=== PATIENT | female | born 1995 | race Caucasian/White ===

== ENCOUNTER 2021-10-25 10:08 | Emergency (ER) | payer OTHER, SELFPAY ==
[2021-10-25 10:09] VITALS: BP 135/81; PULSE 71; RESP 16; TEMP 36.9; O2SAT 98; BMI 23.5
--- NOTE | 2021-10-25 10:13 | HMH.EDGENADL ---
ED Disposition Clinical Impression: Normal exam Disposition: Home, Self-Care Condition on Discharge: Good Additional Instructions: Return to the emergency department if you feel worse in any way. Follow-up with your doctor as needed and regarding the blood tests drawn today. Referrals: Provider,Referral, [Primary Care Provider] - - Critical Care Critical Care Time: No Attestation: On , the high probability of a clinically significant, sudden or life threatening deterioration of the following system(s) required my full and direct attention, intervention and personal management. The time I documented below is in addition to time spent performing reported procedures but includes the following listed in this critical care notation. Medical Decision Making - Jose Inquiry Pt receiving controlled substance: No Vital Signs: 10/25/21 10:09 Temperature 98.5 F Temperature Source Oral Pulse Rate [Right] 71 Respiratory Rate 16 Blood Pressure [Right Arm] 135/81 Blood Pressure Mean [Right Arm] 99 Blood Pressure Source [Right Arm] Automatic Cuff Blood Pressure Position [Right Arm] Sitting 02 Sat by Pulse Oximetry 98 Oxygen Delivery Method Room Air Orders (Tests/Meds): ORDERS Category Date Time Status Complete Blood Count Auto Diff Stat Lab 10/25/21 10:25 Ordered HBsAg Screen Stat Lab 10/25/21 10:25 Ordered HIV Panel [id number] Stat Lab 10/25/21 10:25 Ordered Hepatitis B Surf Ab Quant Stat Lab 10/25/21 10:25 Ordered Hepatitis C Antibody Stat Lab 10/25/21 10:25 Ordered Liver Panel Stat Lab 10/25/21 10:25 Ordered PT/PTT Stat Lab 10/25/21 10:25 Ordered General Adult HPI - General Stated complaint: possible blood exposure Time Seen by Provider: 10/25/21 10:14 - History of Present Illness HPI narrative: The patient presents to the emergency department complaining of a possible exposure to blood products at work. She denies an actual needlestick but felt a needle grazed against her left thumb. She denies any bleeding or visible scraping. Onset (ago): minute(s) (30) - Related Data Allergies Allergy/AdvReac Type Severity Reaction Status Date / Time No Known Allergies Allergy Verified 10/25/21 10:21 [facility] History - Hepatitis A Screen Drug use history?: No Attestation statement:: This patient has been screened for Hepatitis A risk factors. ROS Obtained: Yes All systems reviewed & no additional complaints Physical Exam - General General appearance: alert, in no apparent distress - Head Head exam: atraumatic, normocephalic, normal inspection - Eye Eye exam: Present: normal appearance, PERRL, EOMI - ENT ENT exam: Present: normal exam, normal oropharynx, mucous membranes moist, normal external ear exam - Neck Neck exam: Present: normal inspection, full ROM, trachea midline. Absent: meningismus, lymphadenopathy - Chest Chest inspection: Present: normal inspection, symmetric chest wall rise. Absent: tenderness - Respiratory Respiratory exam: Present: normal lung sounds bilaterally. Absent: respiratory distress - Cardiovascular Cardiovascular exam: Present: regular rate, normal rhythm. Absent: JVD - Abdominal Exam Abdominal exam: Present: soft, normal bowel sounds. Absent: distention, tenderness, guarding - Extremities Exam Extremities exam: Present: normal inspection, full ROM, normal capillary refill, other (The skin is intact at the sites of the possible injury. Which is her left thumb. There is no bleeding, there is no abrasion, there is no ecchymosis.). Absent: calf tenderness - Back Exam Back exam: Present: normal inspection. Absent: tenderness - Neurological Exam Neurological exam: Present: alert, oriented X3 - Psychiatric Psychiatric exam: Present: normal affect, normal mood - Skin Skin exam: Present: warm, dry, intact, normal color - Lymphatic Lymphatic Findings: no adenopathy
--- NOTE | 2021-10-25 10:26 | PC.NURSE ---
[employer] shaving and splitting notified ETHAN Barrientos of exposure
--- NOTE | 2021-10-25 10:28 | PC.NURSE ---
Notified lab of blood draw
[2021-10-25 11:02] LABS: Basophils # 0.1 K/mm3 (0-0.2); Basophils % 1.8 % (0.1-2.0); Eosinophils # 0.1 K/mm3 (0.0-0.4); Eosinophils % 2.5 % (0.1-12.0); Hemoglobin 14.6 g/dL (12.2-16.2); Lymphocytes # 1.2 K/mm3 (0.7-4.5); Lymphocytes % 23.1 % (10-50); Mean Corpuscular HGB Conc 33.9 g/dL (31.8-35.4); Mean Corpuscular Hemoglobin 30.7 pg (27.0-31.2); Mean Corpuscular Volume 90.7 fl (81-99); Mean Platelet Volume 8.4 fl (7.4-10.4); Monocytes # 0.3 K/mm3 (0.1-1.0); Monocytes % 5.7 % (1.7-9.3); Neutrophils # 3.5 K/mm3 (1.8-7.8); Platelet Count 288 K/mm3 (142-424); Red Blood Count 4.74 M/mm3 (4.20-5.40); White Blood Count 5.3 K/mm3 (4.8-10.8)
[2021-10-25 11:07] LABS: Alanine Aminotransferase 30 U/L (12-78); Albumin Level 4.6 g/dl (3.5-5.0); Alkaline Phosphatase 60 U/L (38-126); Aspartate Amino Transferase 36 U/L (14-36); Bilirubin,Indirect 0.6 mg/dL (0.0-0.9); Bilirubin,Total 0.6 mg/dl (0.2-1.3); Bilirubin,Unconjugated 0.6 mg/dL (0.0-1.1); Total Protein,Serum 7.7 g/dl (6.3-8.2)
[2021-10-25 11:13] LABS: Activated Partial Thrombo Time 27.5 seconds (22.8-30.6); INR 1.01 (0.9-1.1); Prothrombin Time 11.4 seconds (10.1-12.5)
--- NOTE | 2021-10-25 11:26 | PC.NURSE ---
spoke with pt about results and d/c instructions. I also went over instructions with pt at d/c. No questions at this time and pt verbalized understanding
[2021-10-25 11:27] VITALS: BP 137/71; PULSE 74; RESP 16; TEMP 36.9; O2SAT 98
[2021-10-26 08:19] LABS: HIV Screen 4th Generation wRfx Non Reactive (Non Reactive); Hepatitis B Surf Ab Quant 87.6 mIU/mL (Immunity>9.9); Hepatitis B Surface Antigen Negative (Negative); Hepatitis C Antibody <0.1 s/co ratio (0.0-0.9)
== END 2021-10-25 11:28 | disposition home or self-care (01) ==
PROVIDERS: Emergency Provider Emergency Medicine
DX: S60.312A Abrasion of left thumb, initial encounter (principal); W22.8XXA Striking against or struck by other objects, initial encounter; Y92.69 Other specified industrial and construction area as the place of occurrence of the external cause; Y99.0 Civilian activity done for income or pay
CPT/HCPCS: 80076; 85025; 85610; 85730; 86703; 86706; 87340; 87380; 99283; G0432